=== PATIENT | female | born 1985 | race Caucasian/White ===

== ENCOUNTER 2017-03-08 20:18 | Outpatient (CLI) | payer MEDICAID ==
[~2017-03-08] VITALS: Ht 157.5 cm; Wt 72.2 kg
[2017-03-08 21:25] LABS: ADD UMIC NO; UR BILIRUBIN (Dip) NEGATIVE (NEGATIVE); UR BLOOD (Dip) NEGATIVE (NEGATIVE); UR CLARITY CLEAR (CLEAR); UR COLOR LT. YELLOW (YELLOW); UR GLUCOSE (Dip) NEGATIVE (NEGATIVE); UR KETONES (Dip) NEGATIVE (NEGATIVE); UR LEUKOCYTE ESTERASE (Dip) NEGATIVE (NEGATIVE); UR NITRITE (Dip) NEGATIVE (NEGATIVE); UR TOTAL PROTEIN (Dip) NEGATIVE (NEGATIVE); UR UROBILINOGEN (Dip) 0.2 E.U./dL (0.1-1.0)
--- NOTE | 2017-03-08 21:36 | RADRPT ---
PROCEDURE: US OB biophysical profile. CLINICAL INDICATION: decreased movements, back pain TECHNIQUE: Multiple sonographic images of the pelvis were obtained. The images were reviewed on a PACS workstation. COMPARISON: No prior studies are available for comparison. FINDINGS: There is a single viable intrauterine gestation. Cardiac activity is present with 140 beats per min myla. There is a vertex presentation. The placenta is fundal maternal right. There is no evidence of placental abruption. There is a normal amount of amniotic fluid with an KAYLIE = 11.2 cm. Biophysical profile: movement 2/2 tone 2/2. breathing 2/2 KAYLIE 2/2 Total 07/08 RPTAT: AA . IMPRESSION: Normal biophysical profile. . .Rey Garrett MD, Date Time Electronically viewed and signed by .Rey Garrett MD, MD on 03/08/2017 21:36 .S/
--- NOTE | 2017-03-08 21:37 | RADRPT ---
PROCEDURE: Limited obstetric ultrasound CLINICAL INDICATION: Pain TECHNIQUE: Multiple transverse and longitudinal grayscale images of the pelvis were obtained lazaro sabdominally and transvaginally.. COMPARISON: same day FINDINGS: The cervix is closed with a length of 4.1 cm. There is a single viable intrauterine gestation. Cardiac activity is present with 142 beats per min false pass. There is a vertex presentation. The placenta is fundal maternal right. There is no evidence of placental abruption. There is a normal amount of amniotic fluid with an KAYLIE = 11.2 cm. RPTAT: AA IMPRESSION: Cervix length measures 4.1 cm. .Rey Garrett MD, MD Date Time Electronically viewed and signed by .Rey Garrett MD, on 03/08/2017 21:37 .S/
--- NOTE | 2017-03-08 21:56 | RADRPT ---
PROCEDURE: Renal US. CLINICAL INDICATION: Flank pain. TECHNIQUE: Multiple sonographic images of the kidneys and urinary bladder were obtained. The imag es were reviewed on a PACS workstation. COMPARISON: No prior studies are available for comparison. FINDINGS: The right kidney measures 9.8 cm. The left kidney measures 9.7 cm. There is no renal mass. There is no hydronephrosis. There is no renal calculus. Renal parenchymal thickness is normal bilaterally. Echogenicity is normal bilaterally. The perirenal regions are normal with no fluid collection or mass. The urinary bladder is unremarkable. IMPRESSION: 1. Unremarkable renal ultrasound. RPTAT: QQ .Nawaf Frazier MD, MD Date Time Electronically viewed and signed by .Nawaf Frazier MD, on 03/08/2017 21:55 .R/
[2017-03-08 22:46] VITALS: BP 112/64; PULSE 94; RESP 20
--- NOTE | 2017-03-08 23:50 | TRIAGE ---
OB Triage Datetime Report Generated by CPN: 03/08/2017 23:49 Datetime: 03/08/2017 22:31 Stage of : OB Triage Labor Evaluation Frequency: 0 Monitor Mode: External Resting Tone [place]: Relaxed Heart Rate FHR Baseline Rate: 130 Monitor Mode: External US Variability: Moderate 6-25 bpm Accelerations: 15X15 Decelerations: None Category: Category I Pain Assessment Pain Scale: 7 Pain Presence: Constant Pain Type: Ache Pain Location: Back Pain Goal: 0 Pain Relief Measures: Comfort Measures Pain Assessment Comments: Bilateral Upper back pain Datetime: 03/08/2017 22:24 Stage of : OB Triage Datetime: 03/08/2017 21:19 Stage of : OB Triage Labor Evaluation Frequency: x3 Monitor Mode: External Duration (sec)2399: 40-60 Resting Tone [place]: Relaxed Heart Rate FHR Baseline Rate: 140 Monitor Mode: External US Variability: Moderate 6-25 bpm Accelerations: 15X15 Decelerations: Variable Category: Category I Comments: Appropriate for GA Pain Assessment Pain Scale: 7 Pain Presence: Constant Pain Type: Ache Pain Location: Back Pain Goal: 0 Pain Relief Measures: Comfort Measures Datetime: 03/08/2017 20:39 Stage of : OB Triage Time of Arrival: 03/08/2017 20:13 EGA: 31.4 Arrived By: Wheelchair Arrived From: Home Chief Complaint: Upper back pain x 2 months, getting worse last 2 weeks Movement: Present Contractions: Denies/Absent Rupture of Membranes: Denies Vaginal Discharge: Denies Recent Sexual Intercouse: Denies Abdominal Trauma: Not Applicable Additional Patient Complaints: Pt states her primary physician told her to go see a general medici cesar clark rt upper back pain, but she did not know how to go about finding one, so she never went. Time Provider Notified: 03/08/2017 20:41 Provider Notified: NICK Initial Plan: VS, EFM, UA, UC, BPP, CL Datetime: 03/08/2017 20:33 Assessment Type: Triage Maternal Assessment Level of Consciousness: Fully Conscious DTR's/Clonus: DTRs 1+; No Clonus Headache: Denies Blurred Vision: No Respiratory Effort: Unlabored Breath Sounds, Left: Clear and Equal Breath Sounds, Right: Clear and Equal Nausea/Vomiting: Denies RUQ Epigastric Pain: Denies Lower Extremities Edema: None Degree: None Upper Extremities Edema: None Degree: None Facial Edema: None Fall Risk Assessment History of Falling: (0) No Secondary Diagnosis: (0) No Ambulatory Aid: (0) Bedrest/Nurse Assist IV Therapy: (0) No Gait: (0) Normal/Bedrest/Immobile Mental Status: (0) Oriented to Own Ability Fall Score: 0 Fall Risk Score Definition: No Risk: No action required Datetime: 03/08/2017 20:28 Stage of : OB Triage Monitor Mode: External (Annotations: PLACED) Monitor Mode: External US (Annotations: PLACED) Datetime: 03/08/2017 20:24 Stage of : OB Triage Datetime: 03/08/2017 20:19 Stage of : OB Triage
[2017-03-09] MEDS ORDERED: ACET500C5 PO (00:10)
--- NOTE | 2017-05-09 20:07 | QN ---
Documentation Comment Diagnosis: 31 wks gesation, back pain BOONE ROMERO MD May 09, 2017 20:07
== END 2017-03-08 22:53 | disposition home or self-care (01) ==
LOC: OBT 20:18 → L-D 20:26 → OBT 22:53
PROVIDERS: ATTEND Obstetrics & Gynecology
DX: O26.893 Other specified pregnancy related conditions, third trimester (principal); M54.9 Dorsalgia, unspecified; Z3A.31 31 weeks gestation of pregnancy
CPT/HCPCS: 76775; 76817; 76818; 81003; 87086; Z7500; G0463

== ENCOUNTER 2017-03-08 23:01 | Emergency (ER) | payer MEDICAID ==
[~2017-03-08] VITALS: Ht 157.5 cm; Wt 71.5 kg
[2017-03-08 23:10] VITALS: Ht 157.5 cm; Wt 71.5 kg
[2017-03-09] MEDS ORDERED: ACET500C5 PO (00:10)
--- NOTE | 2017-03-09 00:14 | ERD ---
ER Documentation Chief Complaint Date/Time DATE: 03/09/17 TIME: 00:14 Chief Complaint upper/lower back pain x 3 months, 7months , cleared by ob HPI Patient is a 31-year-old female, approximately 7 months , , PMHx of asthma, who presents emergency department with upper and lower back pain for the last 3 months. Patient was cleared by the OB floor prior to her presentation to the ED. Patient states that she is not taking any medication for her pain. She denies any recent falls or trauma. Patient denied any saddle anesthesia, urinary incontinence, bowel incontinence, night pain. Patient denies any pain with urination, frequency, urgency or hematuria. Patient denies any chest pain, shortness of breath, cough, fever, chills, nausea , vomiting, loss of consciousness. Patient denied any leg trauma, recent prolonged travel, history of DVT or PE. Patient brings a copy of the renal ultrasound and UA performed today. Both studies were negative. Study reports he will be scanned into the patient's chart. ROS All systems reviewed and are negative except as per history of present illness. Medications Home Meds Active Scripts Acetaminophen* (Tylophen*) 500 Mg Capsule, 1 CAP PO Q6H Y for PAIN AND OR ELEVATED TEMP, #20 CAP Prov:NORI AVILES PA-C 03/09/17 Allergies Allergies: Coded Allergies: No Known Allergy (Unverified , 03/08/17) PMhx/Soc Medical and Surgical Hx: pt denies Surgical Hx History of Surgery: No Anesthesia Reaction: No Hx Neurological Disorder: No Hx Respiratory Disorders: Yes (asthma) Hx Cardiac Disorders: No Hx Psychiatric Problems: No Hx Miscellaneous Medical Probl: No Hx Alcohol Use: No Hx Substance Use: No Hx Tobacco Use: No Smoking Status: Never smoker Physical Exam Vitals Vital Signs Date Time Temp Pulse Resp B/P Pulse Ox O2 Delivery O2 Flow Rate FiO2 03/09/17 00:39 98.8 80 20 103/61 99 Room Air 03/08/17 23:10 98.1 98 20 119/62 98 Physical Exam GENERAL: Well-developed, well-nourished female. Appears in no acute distress. Speaking in full sentences. HEAD: Normocephalic, atraumatic. EYES: Pupils are equally reactive bilaterally. EOMs grossly intact. No conjunctival erythema. ENT: Moist mucous membranes. No uvula deviation. No kissing tonsils. NECK: Supple. No meningismus. Normal range of motion of the neck. LUNG: Clear to auscultation bilaterally. No rhonchi, wheezing, rales or coarse breath sounds. HEART: Regular rate and rhythm. No murmurs, rubs or gallops. ABDOMEN: Gravid abdomen. Positive bowel sounds in all four quadrants. Non tender to palpation. No CVA tenderness. BACK: Tender to palpation of bilateral thoracic and lumbar paraspinous muscles. EXTREMITIES: Equal pulses bilaterally. No peripheral clubbing, cyanosis or edema. No unilateral leg swelling. No pitting edema bilaterally. NEUROLOGIC: Alert and oriented. Moving all four extremities without any difficulty. Normal speech. Steady gait. SKIN: Normal color. Warm and dry. No rashes or lesions. Procedures/MDM MEDICAL DECISION MAKING: This is a 31-year-old female who presents with back pain 3 months. Patient is approximately 7 months . Patient was cleared by OB floor prior to arrival to the ED. Patient brings copies of her renal ultrasound and UA which was obtained earlier today. Renal ultrasound was negative. UA was negative for acute infection or hematuria. Vital signs were reviewed. Patient was afebrile. Physical exam findings revealed tenderness to palpation of the thoracic and lumbar paraspinous muscles. Given these findings, the patient's presentation is most consistent with thoracic and lumbar musculoskeletal pain secondary to . I have a much lower clinical concern for cauda equine syndrome, spinal fractures, epidural abscess, spinal metastases, osteomyelitis, pyelonephritis or nephrolithiasis. PRESCRIPTIONS: Tylenol DISCHARGE: At this time, patient is stable for discharge and outpatient management. Warm compresses were advised. I have instructed the patient to follow-up with her primary care physician/OBGYN in 1-2 days.. I have instructed the patient to promptly return to the ER for any new or worsening symptoms including increased pain, swelling, warmth, urinary incontinence, stool incontinence, chest pain, SOB, weakness or numbness. The patient and/or family expressed understanding of and agreement with this plan. All questions were answered. Home care instructions were provided. Departure Diagnosis: Primary Impression: Back pain Back pain location: back pain in unspecified location Chronicity: unspecified Back pain laterality: unspecified Qualified Code: M54.9 - Back pain, unspecified back location, unspecified back pain laterality, unspecified chronicity Additional Impression: Weeks of gestation: unspecified Qualified Code: Z33.1 - , unspecified gestational age Condition: Stable Patient Instructions: Back Pain (Acute Or Chronic) Referrals: [facility] YOU HAVE RECEIVED A MEDICAL SCREENING EXAM AND THE RESULTS INDICATE THAT YOU DO NOT HAVE A CONDITION THAT REQUIRES URGENT TREATMENT IN THE EMERGENCY DEPARTMENT. FURTHER EVALUATION AND TREATMENT OF YOUR CONDITION CAN WAIT UNTIL YOU ARE SEEN IN YOUR DOCTORS OFFICE WITHIN THE NEXT 1-2 DAYS. IT IS YOUR RESPONSIBILITY TO MAKE AN APPOINTMENT FOR FOLOW-UP CARE. IF YOU HAVE A PRIMARY DOCTOR --you should call your primary doctor and schedule an appointment IF YOU DO NOT HAVE A PRIMARY DOCTOR YOU CAN CALL OUR PHYSICIAN REFERRAL HOTLINE AT IF YOU CAN NOT AFFORD TO SEE A PHYSICIAN YOU CAN CHOSE FROM THE FOLLOWING [facility] [address] [address] [facility] [address] [facility] [place] [address] [facility] [address] [facility] [address] [facility] [address] [facility]. [facility] YOU HAVE RECEIVED A MEDICAL SCREENING EXAM AND THE RESULTS INDICATE THAT YOU DO NOT HAVE A CONDITION THAT REQUIRES URGENT TREATMENT IN THE EMERGENCY DEPARTMENT. FURTHER EVALUATION AND TREATMENT OF YOUR CONDITION CAN WAIT UNTIL YOU ARE SEEN IN YOUR DOCTORS OFFICE WITHIN THE NEXT 1-2 DAYS. IT IS YOUR RESPONSIBILITY TO MAKE AN APPOINTMENT FOR FOLOW-UP CARE. IF YOU HAVE A PRIMARY DOCTOR --you should call your primary doctor and schedule and appointment IF YOU DO NOT HAVE A PRIMARY DOCTOR YOU CAN CALL OUR PHYSICIAN REFERRAL HOTLINE AT . IF YOU CAN NOT AFFORD TO SEE A PHYSICIAN YOU CAN CHOSE FROM THE FOLLOWING [facility] INSTITUTIONS: [facility] [address] [place] [address] [facility] [address] [place] [address] [facility] [address] [place] [address] [employer]IC [employer] ARTIST [place] [address] [facility] [address] [place] [address] OFFICE FAX , [address] [place] [address] [address] ELENAFORMERLY [facility] [address] [place] [address] DR NAJERA, [facility] [address], [facility] [address] [address] ALVAR[address] [facility] [address] [place] [address] [facility] [address] [place] [address] [phone] [facility] [address] - LIZETH CRENSHAW [address], [facility] [address] [address] GUADARRAMA, VIJAYA [address] [facility]. [address], [facility] [address] [address] [facility] [address] [place], [place] [id number] Additional Instructions: Call your primary care doctor/OBGYN TOMORROW for an appointment during the next 1-2 days.See the doctor sooner or return here if your condition worsens before your appointment time. Unable to rule out any fractures or dislocations at this time given that patient is . Advised patient to follow-up for additional imaging after delivery of her baby if pain persists. NORI AVILES PA-C Mar 09, 2017 00:14 NORI AVILES PA-C Mar 09, 2017 00:14
[2017-03-09 00:39] VITALS: BP 103/61; PULSE 80; RESP 20; TEMP 98.8
== END 2017-03-09 00:38 | disposition home or self-care (01) ==
LOC: FTE 23:01
DX: O99.89 Other specified diseases and conditions complicating pregnancy, childbirth and the puerperium (principal); M54.5 Low back pain; O99.519 Diseases of the respiratory system complicating pregnancy, unspecified trimester; J45.909 Unspecified asthma, uncomplicated; Z3A.00 Weeks of gestation of pregnancy not specified
CPT/HCPCS: 99283

== ENCOUNTER 2017-05-08 21:50 | Inpatient (IN) | payer MEDICAID ==
[~2017-05-08] VITALS: Ht 160 cm; Wt 74.5 kg
[~2017-05-08 21:50] MED LIST: ACET500C5 PO
[2017-05-08 22:03] VITALS: BP 121/74; PULSE 80
[2017-05-08] MEDS ORDERED: PRENAT PO (22:05)
[2017-05-08 22:19] VITALS: Ht 160 cm; Wt 74.5 kg
--- NOTE | 2017-05-08 23:27 | TRIAGE ---
OB Triage Datetime Report Generated by CPN: 05/08/2017 23:27 Datetime: 05/08/2017 22:33 Labor Evaluation Frequency: 3-5 Monitor Mode: External Duration (sec)2399: 70-120 Quality: Mild Pattern: Normal: <= 5 Contractions in 10 Minutes Resting Tone [place]: Relaxed Heart Rate FHR Baseline Rate: 140 Monitor Mode: External US FHR Baseline Changes: No Baseline Change Variability: Moderate 6-25 bpm Accelerations: 15X15 Decelerations: None Category: Category I Datetime: 05/08/2017 22:07 Assessment Type: Triage Maternal Assessment Level of Consciousness: Fully Conscious DTR's/Clonus: DTRs 2+; No Clonus Headache: Denies Blurred Vision: No Respiratory Effort: Unlabored; Regular Rhythm; Equal Expansion Breath Sounds, Left: Clear and Equal Breath Sounds, Right: Clear and Equal Nausea/Vomiting: Denies RUQ Epigastric Pain: Denies Facial Edema: None Fall Risk Assessment History of Falling: (0) No Secondary Diagnosis: (0) No Ambulatory Aid: (0) Bedrest/Nurse Assist IV Therapy: (0) No Gait: (0) Normal/Bedrest/Immobile Mental Status: (0) Oriented to Own Ability Fall Score: 0 Fall Risk Score Definition: No Risk: No action required Datetime: 05/08/2017 22:06 Time of Arrival: 05/08/2017 21:45 EGA: 40.0 Arrived By: Wheelchair Arrived From: Emergency Dept Chief Complaint: SROM 1830 Movement: Present Contractions: Regular Time Contractions Began: 05/08/2017 16:30 Contractions: Q10MIN Rupture of Membranes: Ruptured Vaginal Bleeding: None Vaginal Discharge: Denies Recent Sexual Intercouse: Denies Abdominal Trauma: Not Applicable Patient Complaints: Contractions; Other Initial Plan: VS, EFM, SVE, POOLING Datetime: 05/08/2017 22:05 Stage of : OB Triage Vaginal Exam Dilatation (cms): 2.5 Effacement (%): 60 Station: -2 Exam By: [facility] Membrane Status: Ruptured Membranes Ruptured Date/Time: 05/08/2017 18:30 Membranes Rupture Method: Spontaneous Amniotic Fluid Color: Clear Amniotic Fluid Amount: Small Datetime: 05/08/2017 22:04 Membrane Status: Ruptured Datetime: 05/08/2017 21:55 Stage of : OB Triage Monitor Mode: External Contraction Comments: TOCO APPLIED Monitor Mode: External US Comments: US APPLIED Datetime: 03/08/2017 20:39 EGA: 31.2 Datetime: 03/08/2017 20:33 Fall Score: 0 Fall Risk Score Definition: No Risk: No action required
[2017-05-08] MEDS ORDERED: BUTORPHANOL 2 MG INJ IV PRN (23:30)
[2017-05-08] MEDS ORDERED: LIDOCAINE 1% (MPF) 30 ML INJ INJ PRN (23:30)
[2017-05-08] MEDS ORDERED: MISOPROSTOL 200 MCG TAB PR PRN (23:30)
[2017-05-08] MEDS ORDERED: AMPICILLIN 2 GM/NS (PMX) 100 ML IV ONE (23:30)
[2017-05-08] MEDS ORDERED: IBUPROFEN 600 MG TAB PO PRN (23:30)
[2017-05-08] MEDS ORDERED: OXYTOCIN 30 UNITS/LR 500 ML IV SCH ×2 (23:30)
[2017-05-08] MEDS ORDERED: CARBOPROST 250 MCG INJ IM PRN (23:30)
[2017-05-08] MEDS ORDERED: OXYTOCIN 30 UNITS/LR 500 ML IV PRN (23:30)
[2017-05-08] MEDS ORDERED: LACTATED RINGER'S 1,000 ML IV PRN (23:30)
[2017-05-08] MEDS ORDERED: METHYLERGONOVINE 0.2 MG INJ IM PRN (23:30)
[2017-05-08 23:35] LABS: ADD SCAN DIFF NO
[2017-05-08 23:36] LABS: BASOPHIL # 0.1 10^3/ul (0.0-0.1); BASOPHILS % 0.5 % (0.0-2.0); EOSINOPHILS # 0.3 10^3/ul (0.0-0.5); EOSINOPHILS % 2.7 % (0.0-7.0); HEMATOCRIT 35.3 % (37.0-47.0); HEMOGLOBIN 11.3 g/dl (12.0-16.0); LYMPHOCYTES # 2.5 10^3/ul (0.8-2.9); LYMPHOCYTES % 22.6 % (15.0-51.0); MEAN CORPUSCULAR HEMOGLOBIN 25.2 pg (29.0-33.0); MEAN CORPUSCULAR VOLUME 78.6 fl (82.0-101.0); MEAN PLATELET VOLUME 11.1 fl (7.4-10.4); MONOCYTE # 0.6 10^3/ul (0.3-0.9); MONOCYTES % 5.7 % (0.0-11.0); NEUTROPHIL # 7.4 10^3/ul (1.6-7.5); NEUTROPHILS % 67.3 % (39.0-77.0); PLATELET COUNT 262 10^3/UL (140-415); RED BLOOD COUNT 4.49 10^6/ul (4.20-5.40); RED CELL DISTRIBUTION WIDTH 16.3 % (11.5-14.5)
[2017-05-08 23:49] LABS: INR 0.92; PROTIME 12.4 Sec (12.2-14.2)
[2017-05-08 23:50] LABS: PARTIAL THROMBOPLASTIN TIME 26.5 Sec (25.0-35.0)
[2017-05-08] MEDS: LACTATED RINGER'S 1,000 ML IV SCH (23:58)
[2017-05-09] MEDS: AMPICILLIN 1 GM/NS (PMX) 50 ML IV SCH ×4 (03:51→16:18)
[2017-05-09] MEDS ORDERED: FENTAnyl 2MCG/ML-ROPIV 0.2% 100 ML ONE (05:46)
[2017-05-09] MEDS: LACTATED RINGER'S 1,000 ML IV SCH ×2 (05:53→11:47)
[2017-05-09] MEDS ORDERED: KETOROLAC 30 MG INJ IV PRN (07:30)
[2017-05-09] MEDS ORDERED: HYDROmorphONE 1 MG/ML SYG IV PRN ×2 (07:30)
[2017-05-09] MEDS ORDERED: ONDANSETRON 4 MG INJ IV PRN (07:30)
[2017-05-09] MEDS ORDERED: FENTAnyl 2MCG/ML-ROPIV 0.2% 100 ML BAG EPI SCH ×2 (07:30)
[2017-05-09] MEDS ORDERED: NALOXONE (0.4 MG/ML) INJ IV PRN (07:30)
[2017-05-09] MEDS ORDERED: DIPHENHYDRAMINE 50 MG INJ IV PRN (07:30)
[2017-05-09] MEDS ORDERED: PROCHLORPERAZINE 10 MG INJ IV PRN (07:30)
[2017-05-09] MEDS: OXYTOCIN 30 UNITS/LR 500 ML IV SCH ×2 (09:13→17:11)
[2017-05-09] MEDS ORDERED: MINERAL OIL LIGHT 10 ML VIAL TOP ONE (17:00)
--- NOTE | 2017-05-09 17:57 | HP ---
Date/Time of Note Date/Time of Note DATE: 05/09/17 TIME: 17:42 OB - History Hx of Present Free Text/Dictation 30 y.o primigravida at 40weeks came with c/o leaking fluid and uterine contractions which was mild q3-5min VE 2.5/60/-2 rutured clear [place] 18305/08/17 admitted for expectant management poss augmentation known to have submucous myoma one in ant lower and one in post GBS unknown ampicillin Estimated Due Date: May 08, 2017 : 1 Para: 0 Spontaneous : 0 Therapeutic : 0 Care: Good Care Ultrasounds: Normal mid trimester US Obstetrical Complications: None, Other (vulva varicosities) Past Family/Social History * Past Medical, Surgical, Family and Obstetric Histories reviewed from chart. Blood Type: A+ Rubella: immune RPR/VDRL: Negative GBS Status: Unknown HBsAG: Negative OB Admission Exam Vital Signs Vital Signs Vital Signs Date Time Temp Pulse Resp B/P Pulse Ox O2 Delivery O2 Flow Rate FiO2 05/08/17 22:03 98.1 80 121/74 Room Air Physical Exam HEENT: WNL Heart: Rhythm Normal Lungs: Clear, Equal Abdomen: WNL Extremities: Normal Reflexes: Normal Cervical Dilatation: other (2.5) Effacement: Other (60) Station: -2 Amniotic Fluid: Thick Meconium Heart Rate: 140's Accelerations: Accelerations Present Decelerations: Early Decelerations Varibility: Moderate Contractions on Admission: < 5 Minutes Apart Intensity: Mild Last 72 hours Lab Results CBC & BMP 05/08/17 22:45 OB Assessment/Plan Reason for admission: rupture of membranes Plan: Expectant Management Other plan: pitocin augmentation JENNIFER ELKINS MD May 09, 2017 17:53
--- NOTE | 2017-05-09 18:02 | LDN ---
Date/Time of Note Date/Time of Note DATE: 05/09/17 TIME: 18:00 Delivery Summary Weeks of Gestation 40w1d Placenta Delivered: Spontaneously Meconium: none Perineal laceration: 2 Laceration repair: 00gh gut Anesthesia type: Epidural Sponge & Needle done & correct: Yes All needle counts correct: Yes Any foreign bodies felt in the: No Problems: Delivery Information Sex Infant Sex: male Apgars 1 Minute: 8 5 Minute: 9 10 Minute: 9 Suctioning Nose & mouth suctioned at alma: Yes Delee suction performed: No Umbilical Cord Umbilical cord with: 3 Vessels Cord presentations: no nuchal cord Cord Blood was obtained: Yes Mother & Baby Disposition Disposition Mom & Baby to Maternity; Good: Yes Mom transferred to: Other () Baby to NICU: No JENNIFER ELKINS MD May 09, 2017 18:02
[2017-05-09] MEDS ORDERED: CARBOPROST 250 MCG INJ IM PRN (18:30)
[2017-05-09] MEDS ORDERED: WITCH HAZEL/GLYCERIN PAD PR PRN (18:30)
[2017-05-09] MEDS ORDERED: MISOPROSTOL 200 MCG TAB PR PRN (18:30)
[2017-05-09] MEDS ORDERED: OXYTOCIN 30 UNITS/LR 500 ML IV PRN (18:30)
[2017-05-09] MEDS ORDERED: ZOLPIDEM 5 MG TAB PO PRN (18:30)
[2017-05-09] MEDS ORDERED: LANOLIN 7 GM TUBE TOP PRN (18:30)
[2017-05-09] MEDS ORDERED: METHYLERGONOVINE 0.2 MG INJ IM PRN (18:30)
[2017-05-09] MEDS ORDERED: OXYCODONE/ASPIRIN (4.88/325) TAB PO PRN (18:30)
[2017-05-09] MEDS ORDERED: BENZOCAINE 20% 56 ML SPRAY TOP PRN (18:30)
[2017-05-09 18:40] VITALS: BP 112/58; PULSE 70; RESP 18
[2017-05-09] MEDS: SENNA/DOCUSATE NA (8.6MG/50MG) TAB PO SCH (20:23)
[2017-05-09] MEDS: OXYCODONE/ASPIRIN (4.88/325) TAB PO PRN (20:24)
[2017-05-09 20:25] VITALS: BP 115/63; PULSE 69; RESP 18
[2017-05-09] MEDS: IBUPROFEN 600 MG TAB PO SCH (23:55)
[2017-05-10] VITALS: BP 112/62; PULSE 64; RESP 17
[2017-05-10 03:55] VITALS: BP 105/55; PULSE 89; RESP 17
[2017-05-10] MEDS: IBUPROFEN 600 MG TAB PO SCH ×4 (05:27→23:54)
[2017-05-10 08:00] VITALS: BP 98/60; PULSE 79; RESP 18
[2017-05-10 08:13] LABS: ADD SCAN DIFF NO
[2017-05-10 08:18] LABS: BASOPHIL # 0.1 10^3/ul (0.0-0.1); BASOPHILS % 0.3 % (0.0-2.0); EOSINOPHILS # 0.3 10^3/ul (0.0-0.5); EOSINOPHILS % 1.6 % (0.0-7.0); HEMATOCRIT 31.1 % (37.0-47.0); HEMOGLOBIN 9.6 g/dl (12.0-16.0); LYMPHOCYTES # 2.4 10^3/ul (0.8-2.9); LYMPHOCYTES % 14.5 % (15.0-51.0); MEAN CORPUSCULAR HGB CONC 30.9 g/dl (32.0-37.0); MEAN PLATELET VOLUME 10.8 fl (7.4-10.4); MONOCYTE # 0.7 10^3/ul (0.3-0.9); MONOCYTES % 4.1 % (0.0-11.0); NEUTROPHIL # 13.2 10^3/ul (1.6-7.5); NEUTROPHILS % 78.6 % (39.0-77.0); PLATELET COUNT 224 10^3/UL (140-415); RED BLOOD COUNT 3.84 10^6/ul (4.20-5.40); RED CELL DISTRIBUTION WIDTH 16.8 % (11.5-14.5); WHITE BLOOD COUNT 16.8 10^3/ul (4.8-10.8)
[2017-05-10] MEDS: SENNA/DOCUSATE NA (8.6MG/50MG) TAB PO SCH ×2 (09:00→10:48)
[2017-05-10] MEDS: OXYCODONE/ASPIRIN (4.88/325) TAB PO PRN (10:48)
--- NOTE | 2017-05-10 14:07 | PN ---
Date/Time of Note Date/Time of Note DATE: 05/10/17 TIME: 14:05 OB Subjective Subjective Subjective no c/o no b.m OB Objective Objective Objective vss afebrile fundus firm lochia min calf neg OB Assessment/Plan Other Assessment: stable post vaginal delivery #1 Other plan: d/s home in am JENNIFER ELKINS MD May 10, 2017 14:07
[2017-05-10 16:00] VITALS: BP 116/68; PULSE 100; RESP 18
[2017-05-10 19:50] VITALS: BP 109/70; PULSE 89; RESP 19
[2017-05-11 03:40] VITALS: BP 108/69; PULSE 79; RESP 19
[2017-05-11] MEDS: IBUPROFEN 600 MG TAB PO SCH ×3 (05:27→17:31)
[2017-05-11 08:00] VITALS: BP 107/65; PULSE 102; RESP 18
[2017-05-11] MEDS ORDERED: DIPHTH/TET/ACEL PERTUSS (ADULT) 0.5 ML VIAL IM* ONE (09:00)
[2017-05-11] MEDS: SENNA/DOCUSATE NA (8.6MG/50MG) TAB PO SCH (09:21)
[2017-05-11 09:32] LABS: ADD SCAN DIFF NO
[2017-05-11 09:34] LABS: BASOPHIL # 0.1 10^3/ul (0.0-0.1); BASOPHILS % 0.3 % (0.0-2.0); EOSINOPHILS # 0.4 10^3/ul (0.0-0.5); EOSINOPHILS % 2.4 % (0.0-7.0); HEMATOCRIT 25.8 % (37.0-47.0); LYMPHOCYTES # 2.5 10^3/ul (0.8-2.9); LYMPHOCYTES % 17.7 % (15.0-51.0); MEAN CORPUSCULAR HEMOGLOBIN 25.5 pg (29.0-33.0); MEAN CORPUSCULAR VOLUME 82.2 fl (82.0-101.0); MEAN PLATELET VOLUME 11.1 fl (7.4-10.4); MONOCYTE # 0.6 10^3/ul (0.3-0.9); MONOCYTES % 4.5 % (0.0-11.0); NEUTROPHIL # 10.7 10^3/ul (1.6-7.5); NEUTROPHILS % 74.2 % (39.0-77.0); PLATELET COUNT 193 10^3/UL (140-415); RED BLOOD COUNT 3.14 10^6/ul (4.20-5.40); RED CELL DISTRIBUTION WIDTH 17.1 % (11.5-14.5); WHITE BLOOD COUNT 14.4 10^3/ul (4.8-10.8)
[2017-05-11 15:49] VITALS: BP 118/73; PULSE 86; RESP 18
--- NOTE | 2017-05-11 16:06 | PD.PPDC ---
ENTERTAINMENT MANAGER Discharge Instruction Diagnosis Final Diagnosis: s/p vaginal delivery Condition Patient Condition: Stable Diet Diet: Resume Regular Diet Activity/Restrictions Activity: May Shower Restrictions: No Lifting No Sexual Activity Nothing in the Vagina No [place] No Tampons, douche Follow-up Follow-up with Physician: 4, Week/Weeks Return to clinic for AUTOMATION AND CONTROLS MANAGER Instructions: Fever greater than 101 Chills Worsening abdominal pain Excessive Vaginal Bleeding More than 2 pads per hour Unable to tolerate diet OB Instructions: Breast Tenderness Depression Blurried Vision Headache JENNIFER ELKINS MD May 11, 2017 16:06
--- NOTE | 2017-05-11 16:11 | PD.PPDC ---
NUMERICAL CONTROL MACHINE OPERATOR Discharge Instruction Diagnosis Final Diagnosis: s/p vaginal delivery Condition Patient Condition: Stable Diet Diet: Resume Regular Diet Activity/Restrictions Activity: May Shower Restrictions: No Lifting No Sexual Activity Nothing in the Vagina No [place] No Tampons, douche Follow-up Follow-up with Physician: 4, Week/Weeks Return to clinic for HEALTH PLAN ADVISOR Instructions: Fever greater than 101 Chills Worsening abdominal pain Excessive Vaginal Bleeding More than 2 pads per hour Unable to tolerate diet OB Instructions: Breast Tenderness Depression Blurried Vision Headache JENNIFER ELKINS MD May 11, 2017 16:11
--- NOTE | 2017-05-11 16:14 | DS ---
Date/Time of Note Date/Time of Note DATE: 05/11/17 TIME: 16:13 Obstetrical Discharge Record Final Diagnosis Final Diagnosis: Term delivered Vaginal Delivery Obstetrical Delivery: Spontaneous, Laceration, Repaired Complications Augmentation: Yes Rupture of Membranes: No Condition on Discharge Physical Assessment Last Vitals: vss afebrile Voiding: Yes Bowel Movement: Yes Breast: Soft, non-tender Fundus: Firm Calf Tenderness: No Patient Condition: Stable JENNIFER ELKINS MD May 11, 2017 16:14
== END 2017-05-11 18:19 | disposition home or self-care (01) | DRG 775 ==
LOC: OBT 21:50 → L-D 21:50 → OBT 22:15 → L-D 22:15 → PP1 05-09 18:41
PROVIDERS: ADMIT Obstetrics & Gynecology; ATTEND Obstetrics & Gynecology
PROC: 10E0XZZ Delivery of Products of Conception, External Approach (ICD-10-PCS; principal; 2017-05-09)
PROC: 0KQM0ZZ Repair Perineum Muscle, Open Approach (ICD-10-PCS; 2017-05-09)
DX: O48.0 Post-term pregnancy (principal); D25.0 Submucous leiomyoma of uterus; Z3A.40 40 weeks gestation of pregnancy; O34.13 Maternal care for benign tumor of corpus uteri, third trimester; Z37.0 Single live birth; O77.0 Labor and delivery complicated by meconium in amniotic fluid; O76 Abnormality in fetal heart rate and rhythm complicating labor and delivery; O70.1 Second degree perineal laceration during delivery
CPT/HCPCS: 36415; 62319; 85025; 85610; 85730; 86592; 86900; 86901; 87340; 90715; G0463; J0290; J0595; J2590; J3010; J7120